=== PATIENT | female | born 1970 | race Caucasian/White ===

== ENCOUNTER → 2020-05-17 | Day surgery (SDC) | payer OTHER ==
[2020-05-15 12:24] VITALS: BMI 36.2
[2020-05-17 12:31] VITALS: BP 135/68; PULSE 67; TEMP 98.2
== END | disposition home or self-care (01) ==
LOC: FASU 11:46
PROVIDERS: ATTEND Internal Medicine Gastroenterology
PROC: 0DJ08ZZ Inspection of Upper Intestinal Tract, Via Natural or Artificial Opening Endoscopic (ICD-10-PCS; principal; 2020-05-17)
DX: K30 Functional dyspepsia (principal); Z53.09 Procedure and treatment not carried out because of other contraindication
CPT/HCPCS: 84703

== ENCOUNTER 2022-10-31 09:13 | Observation (INO) | payer OTHER ==
[2022-10-31 09:31] VITALS: BMI 36.6
[2022-10-31] MEDS ORDERED: ONDANSETRON 4 MG/2 ML VIAL IVPUSH ONE (09:52)
[2022-10-31] MEDS ORDERED: ONDANSETRON 4 MG/2 ML VIAL ONE (10:20)
[2022-10-31] MEDS ORDERED: ASPIRIN 81 MG CHEWABLE TABLETS PO ONE (10:21)
[2022-10-31] MEDS ORDERED: ASPIRIN 81 MG CHEWABLE TABLETS ONE (10:24)
[2022-10-31 11:00] LABS: BASO % 0.1 % (0-2.0); EOS % 0.2 % (0-4.5); EPI CELLS >36 /uL (0-25.1); HEMATOCRIT 40.4 % (32.4-45.2); HEMOGLOBIN 13.3 GM/dL (10.7-15.3); HYALINE CASTS 1 /uL (0-3.1); LYMPH % 14.3 % (8-40); MCH 28.7 pg (25.7-33.7); MEAN PLT VOLUME 9.4 fl (7.5-11.1); MONO % 4.4 % (3.8-10.2); PLATELET COUNT 250 10^3/uL (134-434); RBC 4.65 M/mm3 (3.60-5.2); RDW 13.7 % (11.6-15.6); URINE APPEARANCE CLEAR; URINE BACTERIA 756 /uL (0-1359); URINE BILIRUBIN NEGATIVE (NEGATIVE); URINE COLOR DK YELLOW; URINE GLUCOSE (UA) NEGATIVE (NEGATIVE); URINE KETONE NEGATIVE (NEGATIVE); URINE LEUK ESTERASE NEGATIVE (NEGATIVE); URINE NITRITE NEGATIVE (NEGATIVE); URINE PROTEIN 2+ (NEGATIVE); URINE RBC 16 /uL (0-23.9); URINE UROBILINOGEN 0.2 mg/dL (0.2-1.0); URINE WBC 17 /uL (0-25.8); WHITE BLOOD COUNT 10.1 K/mm3 (4.0-10.0)
[2022-10-31 11:25] LABS: CALCIUM 9.8 mg/dL (8.5-10.1)
[2022-10-31 11:26] LABS: ALBUMIN 4.6 g/dl (3.4-5.0); BLOOD UREA NITROGEN 15.8 mg/dL (7-18); MAGNESIUM 2.2 mg/dL (1.8-2.4)
[2022-10-31 11:29] LABS: CREATININE 0.7 mg/dL (0.55-1.3)
[2022-10-31 11:30] LABS: BILIRUBIN,TOTAL 0.4 mg/dL (0.2-1); PHOSPHOROUS 3.8 mg/dL (2.5-4.9); TOT PROT 7.4 g/dl (6.4-8.2)
[2022-10-31] MEDS ORDERED: ACETAMINOPHEN 1000 MG/100 ML BAG IVPB ONE (13:15)
[2022-10-31] MEDS ORDERED: ACETAMINOPHEN INJECTION 100 ML IVPB ONE (13:39)
[2022-10-31] MEDS: INSULIN SLIDING SCALE (NOVOLOG) 1 VIAL SQ SCH ×2 (18:28→22:02)
[2022-10-31] MEDS ORDERED: ACETAMINOPHEN 325 MG TABLET (FP) PO PRN (22:01)
[2022-10-31] MEDS ORDERED: ATORVASTATIN CA 40 MG TABLET (FP) ONE (22:09)
[2022-10-31] MEDS ORDERED: ACETAMINOPHEN 325 MG TABLET (FP) ONE (22:09)
[2022-10-31] MEDS: ATORVASTATIN CA 80 MG TABLET (FP) PO SCH (22:25)
[2022-11-01] MEDS: INSULIN SLIDING SCALE (NOVOLOG) 1 VIAL SQ SCH ×4 (06:16→21:36)
[2022-11-01] MEDS ORDERED: FLU VACC QS2022-23(6MOS UP)/PF 60 MCG/0.5 ML SYRINGE IM ONE (10:00)
[2022-11-01] MEDS ORDERED: ENOXAPARIN NA (PORCINE) 40 MG/0.4 ML DISP.SYRIN SQ SCH (10:00)
[2022-11-01] MEDS ORDERED: PNEUMOC 20-VAL CONJ-DIP CRM/PF 0.5 ML SYRINGE IM ONE (10:00)
[2022-11-01 10:23] LABS: BASO % 0.2 % (0-2.0); EOS % 1.6 % (0-4.5); HEMATOCRIT 36.5 % (32.4-45.2); HEMOGLOBIN 12.4 GM/dL (10.7-15.3); LYMPH % 20.3 % (8-40); MCH 29.7 pg (25.7-33.7); MEAN CELL VOLUME 87.1 fl (80-96); MEAN PLT VOLUME 9.2 fl (7.5-11.1); MONO % 4.7 % (3.8-10.2); NEUT % 73.2 % (42.8-82.8); PLATELET COUNT 226 10^3/uL (134-434); RBC 4.19 M/mm3 (3.60-5.2); RDW 14.1 % (11.6-15.6); WHITE BLOOD COUNT 10.5 K/mm3 (4.0-10.0)
[2022-11-01 10:56] LABS: CALCIUM 9.4 mg/dL (8.5-10.1)
[2022-11-01 10:57] LABS: ALBUMIN 3.8 g/dl (3.4-5.0); BLOOD UREA NITROGEN 16.7 mg/dL (7-18); MAGNESIUM 2.3 mg/dL (1.8-2.4)
[2022-11-01 11:00] LABS: CREATININE 0.7 mg/dL (0.55-1.3); PHOSPHOROUS 3.7 mg/dL (2.5-4.9)
[2022-11-01 11:01] LABS: BILIRUBIN,TOTAL 0.4 mg/dL (0.2-1); TOT PROT 6.5 g/dl (6.4-8.2)
[2022-11-01 17:44] VITALS: TEMP 98
[2022-11-01 19:48] VITALS: BP 121/47; PULSE 62; RESP 17
[2022-11-01] MEDS: ATORVASTATIN CA 80 MG TABLET (FP) PO SCH (21:36)
== END 2022-11-01 23:32 | disposition short-term general hospital (02) ==
LOC: JER 09:13 → UNDOADMOB 13:18 → JERBED 13:18 → J6W 23:55 → JERBED 11-01 09:30
PROVIDERS: ADMIT Internal Medicine
PROC: 3E033NZ Introduction of Analgesics, Hypnotics, Sedatives into Peripheral Vein, Percutaneous Approach (ICD-10-PCS; principal; 2022-11-01)
PROC: 3E0234Z Introduction of Serum, Toxoid and Vaccine into Muscle, Percutaneous Approach (ICD-10-PCS; 2022-11-01)
PROC: 3E033GC Introduction of Other Therapeutic Substance into Peripheral Vein, Percutaneous Approach (ICD-10-PCS; 2022-11-01)
DX: R07.9 Chest pain, unspecified (principal); R42 Dizziness and giddiness; R06.02 Shortness of breath; E11.9 Type 2 diabetes mellitus without complications; I10 Essential (primary) hypertension; E78.5 Hyperlipidemia, unspecified; E66.01 Morbid (severe) obesity due to excess calories; Z68.36 Body mass index [BMI] 36.0-36.9, adult
CPT/HCPCS: 0241U-QW; 36415; 71045-TC-FY; 78452-TC; 80053; 80061; 81003; 82962; 83036; 83735; 84100; 84484; 85025; 87086; 90677; 93005; 93010; 93017; 93306-TC; 99285-25; A9502; G0378; Q2036

== ENCOUNTER 2024-02-24 04:52 | Day surgery (SDC) | payer OTHER ==
[2024-02-23 08:57] VITALS: BMI 34.9
[2024-02-24 11:21] VITALS: TEMP 98.2
[2024-02-24 11:51] VITALS: BP 118/72; PULSE 76; RESP 19
== END 2024-02-24 11:56 | disposition home or self-care (01) ==
LOC: JASU-ENDO 04:52
PROVIDERS: ATTEND Internal Medicine Gastroenterology
PROC: 0DB78ZX Excision of Stomach, Pylorus, Via Natural or Artificial Opening Endoscopic, Diagnostic (ICD-10-PCS; 2024-02-24)
PROC: 0DB68ZX Excision of Stomach, Via Natural or Artificial Opening Endoscopic, Diagnostic (ICD-10-PCS; principal; 2024-02-24 10:15)
DX: K29.50 Unspecified chronic gastritis without bleeding (principal); B96.81 Helicobacter pylori [H. pylori] as the cause of diseases classified elsewhere
CPT/HCPCS: 82962; 88305-TC; 88342-TC